=== PATIENT | male | born 1950 | race Caucasian/White ===

== ENCOUNTER 2021-07-14 09:16 | Emergency (ER) | payer MEDICARE, OTHER ==
--- OUTSIDE RECORDS SUMMARY | 2021-07-14 09:19 | XMS REPORT | Continuity of Care Document ---
:1950 Author Organization [facility] t Address [address] [place] [address] [address]. [address] [place] [address] Care Team Providers Name Role Phone Papa CACERES, Puneet Khan Attending Clinician Only, Test Attending Clinician Unavailable Pob, Lab Main Attending Clinician Unavailable Doctor Unassigned, Name Attending Clinician Unavailable Papa CACERES, A Admitting Clinician Problems This patient has no known problems. Allergies, Adverse Reactions, Alerts This patient has no known allergies or adverse reactions. Medications This patient has no known medications. Procedures This patient has no known procedures. Encounters Start End Encounter Admission Attending Care Care Encounter Source Date/Time Date/Time Type Type Clinicians Facility Department ID 2020-05-24 2020-05-24 [facility] [id number] 07:16:11 11:00:00 Encounter Puneet Alfaro [id number] [place] [id number] [facility] [id number] [place] 071 2020-05-23 2020-05-23 Laboratory Only, [place] [id number] 10:38:50 10:53:50 Only Test Angelina [id number] [place] [id number] [place] [id number] 2020-05-19 2020-05-19 Animal Tech Aaliyah [facility] [id number] 11:52:52 12:07:52 Visit Lab Main Angelina [id number] [place] [id number] [place] [id number] [address] 2020-05-19 2020-05-19 Orders Doctor THIERRY [id number] 00:00:00 00:00:00 Only Unassigned, STACI [id number] [place] [facility] [id number] Results This patient has no known results.
[2021-07-14 09:36] LABS: Absolute Lymphocytes (CBC) 1.2 K/uL (0.7-4.9); Basophils % 0.4 % (0-1.3); Hematocrit 41.5 % (39.6-49.0); Lymphocytes % 32.1 % (15.3-44.8); MPV 10.5 fL (7.6-11.3); RBC Red Blood Cell Count 4.48 M/uL (4.33-5.43)
[2021-07-14 09:50] LABS: Protime INR 1.16
[2021-07-14 09:59] LABS: BUN Blood Urea Nitrogen 15 mg/dL (7-18); Bicarbonate 27 mmol/L (21-32); Ferritin 822.9 ng/mL (26-388); Glucose Level 190 mg/dL (74-106); Potassium 3.6 mmol/L (3.5-5.1); Sodium Level 133 mmol/L (136-145); Troponin (Emerg Dept Use Only) < 0.02 ng/mL (0.0-0.045)
[2021-07-14 10:02] LABS: Blood Morphology Comment NOT SEEN (NOT SEEN); White Blood Cell Scan OK (OK)
[2021-07-14 10:04] LABS: Platelet Estimate DECR
--- NOTE | 2021-07-14 10:43 | RAD REPORT ---
EXAM DESCRIPTION: CT - Head Brain Wo Cont - 07/14/2021 10:28 am CLINICAL HISTORY: dizziness, trouble walking COMPARISON: No comparisonsNo comparisons TECHNIQUE: All CT scans are performed using dose optimization technique as appropriate and may inclu de automated exposure control or mA/KV adjustment according to patient size. FINDINGS: No intracranial hemorrhage, hydrocephalus or extra-axial fluid collection.No areas of brai n edema or evidence of midline shift. The paranasal sinuses and mastoids are clear. The calvarium is intact. IMPRESSION: No acute intracranial abnormality.
[2021-07-14] MEDS ORDERED: NA CHLORIDE 0.9% 1,000 ML ONE (10:49)
--- NOTE | 2021-07-14 10:58 | RAD REPORT ---
EXAM DESCRIPTION: RAD - Chest Single View - 07/14/2021 10:13 am CLINICAL HISTORY: COVID COMPARISON: No comparisons FINDINGS: Lines: None. Lungs: Low lung volumes with possible subtle bilateral scattered airspace opacities. Pleural: No significant pleural effusions or pneumothorax. Cardiac: The heart size is within normal limits. Bones: No acute fractures. Other: IMPRESSION: Suspect mild bilateral airspace disease that could reflect Covid-19 pneumonia.
--- NOTE | 2021-07-14 13:37 | ER ---
Nurse's Notes [facility] Name: Chelsea Gonsales Age: 71 yrs Sex: Male : 1950 Arrival Date: 07/14/2021 Time: 09:17 Bed 6 Private MD: Diagnosis: Pneumonia due to SARS-associated coronavirus;Muscle weakness (generalized);Dehydration Presentation: 07/14 09:17 Chief complaint: Patient states: weakness. informed EMS pt was altered yesterday. 5 Coronavirus screen: Vaccine status: Patient reports being unvaccinated. Client denies travel out of the [place] in the last 14 days. Coronavirus screen: Client presents with at least one sign or symptom that may indicate coronavirus-19. Standard/surgical mask placed on the client. Ebola Screen: Patient negative for fever greater than or equal to 101.5 degrees Fahrenheit, and additional compatible Ebola Virus Disease symptoms Patient denies exposure to infectious person. Patient denies travel to an Ebola-affected area in the 21 days before illness onset. Initial Sepsis Screen: Does the patient meet any 2 criteria? No. Patient's initial sepsis screen is negative. Does the patient have a suspected source of infection? No. Patient's initial sepsis screen is negative. Initial Sepsis Screen: Does the patient meet any 2 criteria? Altered Mental Status. Risk Assessment: Do you want to hurt yourself or someone else? Patient reports no desire to harm self or others. Onset of symptoms was July 06, 2021. 09:17 Method Of Arrival: EMS: [place] [id number] 09:17 Acuity: STEVE 3 ch5 Triage Assessment: 09:17 General: Appears in no apparent distress. Behavior is calm, cooperative. Pain: Denies [facility] pain. Historical: - Allergies: 10:26 No Known Allergies; hb - Immunization history:: Adult Immunizations not up to date. - Social history:: Smoking status: Patient denies any tobacco usage or history of. - Family history:: not pertinent. - Hospitalizations: : No recent hospitalization is reported. Screenin:09 Abuse screen: Denies threats or abuse. Denies injuries from another. Nutritional 5 screening: No deficits noted. Tuberculosis screening: No symptoms or risk factors identified. Fall Risk None identified. Assessment: 10:09 Reassessment: No changes from previously documented assessment. ch5 11:00 Reassessment: Patient appears in no apparent distress at this time. No changes from hb previously documented assessment. Patient and/or family updated on plan of care and expected duration. Pain level reassessed. 11:49 Reassessment: Patient appears in no apparent distress at this time. No changes from hb previously documented assessment. Patient and/or family updated on plan of care and expected duration. Pain level reassessed. Vital Signs: 09:17 BP 167 / 95; Pulse 77; Resp 18; Temp 98.6(O); Pulse Ox 96% on R/A; Weight 83.91 kg; ch5 Height 5 ft. 10 in. (177.80 cm); Pain 0/10; 11:48 BP 169 / 95; Pulse 75; Resp 17; Pulse Ox 98% ; hb 09:17 Body Mass Index 26.54 (83.91 kg, 177.80 cm) [facility] ED Course: 09:17 Patient arrived in ED. [facility] 09:17 Arm band placed on left wrist. EKG completed in triage. Results shown to MD. [facility] 09:19 Brady Williamson MD is Attending Physician. rn 09:22 Triage completed. 5 10:09 Bed in low position. Call light in reach. Side rails up X2. 5 10:09 No provider procedures requiring assistance completed. Inserted saline lock: 20 gauge [facility] in right antecubital area, using aseptic technique. 10:12 Arvin Clark, KARTHIK is Primary Nurse. [facility] 10:14 CXR XRAY In Process Unspecified. EDMS 10:28 CT Head Brain wo Cont In Process Unspecified. EDMS 10:30 COVID-19 : Document "Date of Symptom Onset" if Symptomatic. Sent. 5 10:30 COVID swab sent to lab. [facility] 10:30 BMP Sent. 5 10:30 Blood Culture Adult (2) Sent. [facility] Administered Medications: 10:26 Drug: NS 0.9% 1000 ml Route: IV; Rate: 1000 ml; Site: right antecubital; hb Outcome: 13:36 Discharge ordered by . rn 17:05 Patient left the ED. Signatures: Dispatcher [employer] EDMS Brady Williamson MD MD rn Baxter, Heather, RN RN Jaci Liang [facility] Arvin Clark RN KARTHIK [facility] Corrections: (The following items were deleted from the chart) 10:44 10:30 CORONAVIRUS drawn and sent. 5 EDOK
--- NOTE | 2021-07-14 13:37 | EDPHYS ---
Physician Documentation [facility] Name: Chelsea Gonsales Age: 71 yrs Sex: Male : 1950 Arrival Date: 07/14/2021 Time: 09:17 Bed 6 Private MD: ED Physician Brady Williamson HPI: 07/14 09:36 This 71 yrs old Male presents to ER via EMS with complaints of Generalized rn weakness and altered mental status. 09:36 The patient presents with dizziness, feeling faint, generalized weakness. Onset: The rn symptoms/episode began/occurred at an unknown time. Context: occurred at home, occurred while the patient was at rest. Modifying factors: The symptoms are alleviated by lying down, the symptoms are aggravated by standing up, changing position. Associated signs and symptoms: Pertinent negatives: abdominal pain, chest pain, focal weakness, head injury, seizure, shortness of breath, syncope, vomiting. Severity of symptoms: At their worst the symptoms were moderate in the emergency department the symptoms have improved. It is unknown whether or not the patient has had similar symptoms in the past. The patient has been recently seen by a physician:. EMS reports called 911 for generalized weakness and dizziness. Reported some confusion yesterday. Is 8 days into his Covid illness. Denies shortness of breath. Reports decreased appetite and decreased p.o. intake. Also reports not taking his Metformin or blood pressure medication regularly without a good reason. Denies any vomiting or blood in stool.. Historical: - Allergies: 10:26 No Known Allergies; hb - Immunization history:: Adult Immunizations not up to date. - Social history:: Smoking status: Patient denies any tobacco usage or history of. - Family history:: not pertinent. - Hospitalizations: : No recent hospitalization is reported. ROS: 09:36 Constitutional: Negative for fever, chills Eyes: Negative for injury, pain, redness, rn and discharge, ENT: Negative for injury, pain, and discharge, Neck: Negative for injury, pain, and swelling, Cardiovascular: Negative for chest pain, palpitations, and edema, Respiratory: Negative for shortness of breath, cough, wheezing, and pleuritic chest pain, Abdomen/GI: Negative for abdominal pain, constipation, Back: Negative for injury and pain, : Negative for injury, bleeding, discharge, and swelling, MS/Extremity: Negative for injury and deformity, Skin: Negative for injury, rash, and discoloration, Neuro: Negative for headache, numbness, tingling, and seizure. 09:36 All other systems are negative. Exam: 09:35 ECG was reviewed by the Attending Physician. rn 09:36 Constitutional: This is a well developed, well nourished patient who is awake, alert, rn no acute distress Head/Face: Normocephalic, atraumatic. Eyes: Periorbital areas with no swelling, redness, or edema. ENT: Dry mucous membranes without stridor Cardiovascular: Regular rate and rhythm. No pulse deficits. Respiratory: No increased work of breathing, no retractions or nasal flaring. Abdomen/GI: Soft, nontender Skin: Warm, dry MS/ Extremity: Pulses equal, no cyanosis. Equal circumference Neuro: Awake and alert, GCS 15, oriented to person, place, time, and situation. Motor strength 4/5 in all extremities. Sensory grossly intact. Vital Signs: 09:17 BP 167 / 95; Pulse 77; Resp 18; Temp 98.6(O); Pulse Ox 96% on R/A; Weight 83.91 kg; ch5 Height 5 ft. 10 in. (177.80 cm); Pain 0/10; 11:48 BP 169 / 95; Pulse 75; Resp 17; Pulse Ox 98% ; hb 09:17 Body Mass Index 26.54 (83.91 kg, 177.80 cm) ch5 MDM: 09:19 Patient medically screened. rn 13:34 Differential diagnosis: generalized weakness, hypovolemia, idiopathic dizziness, rn near-syncope, Covid, dehydration. Data reviewed: vital signs, nurses notes, lab test result(s), EKG, radiologic studies, CT scan, plain films, and as a result, I will discharge patient. Data interpreted: facility mechanic: rate is 75 beats/min, rhythm is normal sinus rhythm, regular, with no ectopy, Interpretation: normal rate, normal rhythm, Pulse oximetry: on room air is 98 %. Interpretation: normal. Test interpretation: by ED physician or midlevel provider: ECG, plain radiologic studies, Chest x-ray with mild bilateral interstitial infiltrates consistent with Covid pneumonia. Counseling: I had a detailed discussion with the patient and/or guardian regarding: the historical points, exam findings, and any diagnostic results supporting the discharge/admit diagnosis, lab results, radiology results, the need for outpatient follow up, to return to the emergency department if symptoms worsen or persist or if there are any questions or concerns that arise at home. Response to treatment: the patient's symptoms have mildly improved after treatment, and as a result, I will discharge patient. Special discussion: I discussed with the patient/guardian in detail that at this point there is no indication for admission to the hospital. It is understood, however, that if the symptoms persist or worsen the patient needs to return immediately for re-evaluation. ED course: Patient with generalized weakness and dehydration, secondary to Covid infection, chest x-ray shows mild pneumonia, patient without any oxygen requirement. Offered monoclonal antibody infusion given multiple medical problems such as diabetes and hypertension. Patient agrees, was consented and will give Regeneron infusion. After infusion will discharge home with return precautions.. 07/14 09:20 Order name: BMP 07/14 09:20 Order name: Blood Culture Adult (2) rn 07/14 09:20 Order name: C-Reactive Protein; Complete Time: 11: 07/14 09:20 Order name: CBC with Diff; Complete Time: 11: 07/14 09:20 Order name: Ferritin; Complete Time: 11: 07/14 09:20 Order name: Lactate; Complete Time: 11: 07/14 09:20 Order name: PT-INR; Complete Time: 11: rn 07/14 09:20 Order name: Procalcitonin; Complete Time: 11: 07/14 09:20 Order name: Ptt, Activated; Complete Time: 11: 07/14 09:20 Order name: Troponin (emerg Dept Use Only); Complete Time: 11: rn 07/14 09:21 Order name: Basic Metabolic Panel; Complete Time: 11: EDKS 07/14 09:21 Order name: Blood Culture EDKS 07/14 09:41 Order name: CBC Smear Scan; Complete Time: 11: [facility] 07/14 09:53 Order name: COVID-19 : Document "Date of Symptom Onset" if Symptomatic. eb 07/14 09:20 Order name: CXR XRAY; Complete Time: 11: 07/14 09:20 Order name: EKG; Complete Time: :21 rn 07/14 09:20 Order name: Cardiac monitoring; Complete Time: 10: rn 07/14 09:20 Order name: Droplet/Contact Precautions; Complete Time: 10: rn 07/14 09:20 Order name: EKG - Nurse/Tech; Complete Time: 10: rn 07/14 09:20 Order name: IV Start; Complete Time: 10: rn 07/14 09:20 Order name: Labs collected and sent; Complete Time: : rn 07/14 09:20 Order name: O2 Per Protocol; Complete Time: : rn 07/14 09:20 Order name: O2 Sat Monitoring; Complete Time: 10: rn 07/14 09:20 Order name: CT Head Brain wo Cont; Complete Time: 11: rn 07/14 09:20 Order name: Glucose Level; Complete Time: 10: rn 07/14 11:56 Order name: SARS-COV-2 RT PCR; Complete Time: 12:25 EDMS EC:35 Rate is 80 beats/min. Rhythm is regular. Left axis deviation noted. QRS is positive in rn lead I and negative in lead aVF. HI interval is normal. QRS interval is normal. QT interval is normal. No Q waves. T waves are Normal. No ST changes noted. Clinical impression: NSR w/ Non-specific ST/T Changes and LAD. Interpreted by me. Reviewed by me. Administered Medications: 10:26 Drug: NS 0.9% 1000 ml Route: IV; Rate: 1000 ml; Site: right antecubital; Disposition Summary: 07/14/21 13:36 Discharge Ordered Location: Home rn Problem: new rn Symptoms: have improved rn Condition: Stable rn Diagnosis - Pneumonia due to SARS-associated coronavirus rn - Muscle weakness (generalized) rn - Dehydration rn Followup: rn - With: Private Physician - When: As needed - Reason: Recheck today's complaints, Re-evaluation by your physician Discharge Instructions: - Discharge Summary Sheet rn - Dehydration, Adult rn - COVID-19 rn - 10 Things You Can Do to Manage Your COVID-19 Symptoms at Home - [facility] rn Forms: - Medication Reconciliation Form rn - Thank You Letter rn - Antibiotic rn interventional - Prescription Opioid Use rn Signatures: Dispatcher [employer] EDKS Williamson, Brady, MD MD rn Vines, Vianney, RN RN hb Eduardo, Christopher, RN RN ch5 Corrections: (The following items were deleted from the chart) 10:44 09:54 CORONAVIRUS ordered. EDMS EDMS
[2021-07-14] MEDS ORDERED: CASIRIVIMAB/IMDEVIMAB 10 ML VIAL ONE (13:49)
[2021-07-14] MEDS ORDERED: NA CHLORIDE 0.9% 250 ML ONE (13:50)
[2021-07-14] MEDS ORDERED: ACETAMINOPHEN 500 MG TAB ONE (16:33)
[2021-07-14 17:16] VITALS: TEMP 98.6
[2021-07-14 17:17] VITALS: BP 169/95; O2SAT 98
== END 2021-07-14 17:05 | disposition home or self-care (01) ==
LOC: ER 09:16
DX: U07.1 COVID-19 (principal); J12.82 Pneumonia due to coronavirus disease 2019; E86.0 Dehydration
CPT/HCPCS: 93005; 87040 ×2; 85025; 80048; 36415; 85610; 83605; 85730; 84484; 82728; 84145; 86140; 70450; 71045; 99284; U0003; J7050; J7030

== ENCOUNTER 2022-10-22 10:16 | Emergency (ER) | payer OTHER ==
--- OUTSIDE RECORDS SUMMARY | 2022-10-22 10:20 | XMS REPORT | Continuity of Care Document ---
:1950 Author Organization [facility] t Address [address] [place] [address] Dr. Michel. [address] [place] [address] Care Team Providers Name Role Phone PUNEET LANDON Attending Clinician Unavailable Puneet Landon MD Attending Clinician Only, Adc Test Attending Clinician Unavailable Pob, Adc Lab Main Attending Clinician Unavailable Doctor Unassigned, [place] Attending Clinician Unavailable PUNEET LANDON Admitting Clinician Unavailable Puneet Landon MD Admitting Clinician Payers Payer Name Policy Type Policy Number Effective Date Expiration Date S bambi MEDICARE PART A [id number] 2013 \T\ B 00:00:00 Problems This patient has no known problems. Allergies, Adverse Reactions, Alerts Allergy Allergy Status Severity Reaction(s) Onset Inactive Treating Comm ents Source Name Type Date Date Clinician Hydrocod Propensi Active Dizziness Uni vers one ty to 7-22 ity of adverse 00:00: [place] reaction [facility] HYDROCOD DRUG Active Dizziness Unive rs ONE INGREDI 7-22 ity of 00:00: [place] [facility] Hydrocod Propensi Active Dizziness 2012-11 Uni vers one-Ibup ty to 0-22 ity of rofen adverse 00:00: [place] reaction [facility] HYDROCOD DRUG Active Dizziness 2012-11 Unive rs ONE-IBUP 0-22 ity of ROFEN 00:00: [address] NO KNOWN Drug Active [facility] ALLERG Class ity of S [facility] Social History Social Habit Start Date Stop Date Quantity Comments Source Sex Assigned At Universit y of [facility] Exposure to Not sure University of SARS-CoV-2 [facility] (event) Branch Alcohol intake 2020-05-24 2020-05-24 University of 00:00:00 00:00:00 [facility] Tobacco Comment 2020-05-23 2020-05-23 quit 15 years Univer sity of 00:00:00 00:00:00 ago [facility] Smoking Status Start Date Stop Date Source Unknown if ever smoked Universit y [facility] Former smoker 2020-05-24 00:00:00 2020-05-24 00:00:00 Universi ty [facility] Medications Ordered Filled Start Stop Current Ordering Indication Dosage Frequency Signature Comments Components Source Medication Medication Date Date Medication? Clinician (SIG) Name Name metFORMIN 2020-0 Yes 500mg Take 500 Uni vers 500 mg 7-22 mg by ity of tablet 16:22: mouth 2 [place] 50 (two) Medical times Branch daily with meals. losartan 2020-0 Yes 100mg Take 100 Univ ers 100 mg 7-22 mg by ity of tablet 16:22: mouth [place] 50 daily. Medical Branch bisoproloL- 2020-0 Yes 1{tbl} Take 1 Un joe hydrochloro 7-22 tablet by ity of thiazide 16:22: mouth [place] 2.5-6.25 mg 50 daily. Medica l per tablet Branch aMILoride 5 2020-0 Yes 5mg Take 5 mg U nivers mg tablet 7-22 by mouth ity of 16:22: daily. [address] OMEGA-3-DHA 2020-0 Yes 500mg Take 500 U nivers -EPA-FISH 7-22 mg by ity of OIL ORAL 16:22: mouth. [address] lactated 2020-0 Yes 1000mL at 75 Univer s ringers IV 7-22 mL/hr, ity of infusion 15:30: 1,000 [place] 1[place]000 [place] 00 IV Medical Infusion, Branch CONTINUOUS , Starting Fri05/24/20 at 1030, Until Discontinu ed, Routine, PACU neomycin-po 2019-0 Yes PRN, Univer s lymyxin-dex 7-22 Starting ity of amethasone 15:01: Fri [place] (MAXITROL) 00 05/24/20 at Med ical 3.5 1001, Branch mg/g-10,000 Until unit/g-0.1 Discontinu % ed, ophthalmic Routine, ointment Intra-op gentamicin 2020-0 Yes PRN, Univers injection 05-24 Starting ity of 15:00: Fri [place] 00 05/24/20 at [facility] 1000, Branch Until Discontinu ed, ALLAN, Intra-op dexamethaso 2020-0 Yes PRN, Univer s ne 05-24 Starting ity of (DECADRON 14:59: Fri [place] PHOSPHATE) 05/24/20 at [facility] ical injection 0959, Branch Until Discontinu ed, Routine, Intra-op ceFAZolin 2020-0 Yes PRN, Univers (ANCEF) 05-24 Starting ity of injection 14:58: Fri [place] 00 05/24/20 at [facility] 0958, Branch Until Discontinu ed, ALLAN, Intra-op carbachoL 2020-0 Yes PRN, Univers (MIOSTAT) 05-24 Starting ity of 0.01 % 14:58: Fri [place] intraocular 00 05/24/20 at Sd dical injection 0958, [place] Until Discontinu ed, Routine, Intra-op DUOVISC 2020-0 Yes PRN, Univers (DUOVISC 05-24 Starting ity of VISCO 14:58: Fri [place] ELASTIC) 3 05/24/20 at [facility] %-4 %(0.5 0958, Branch mL) 1 % Until (0.55 mL) Discontinu intraocular ed, injection Routine, Intra-op sodium 2020-0 Yes PRN, Univers chloride 05-24 Starting ity of (NS) 14:57: Fri [place] injection 05/24/20 at [facility] 0957, Branch Until Discontinu ed, Routine, Intra-op EPINEPHrine 2020-0 Yes PRN, Univer s 1:1,000 (1 05-24 Starting ity o f mg/mL) 14:55: Fri (ADRENALIN) 05/24/20 at Sd dical injection 0955, Branch Until Discontinu ed, Routine, Intra-op balanced 2020-0 Yes PRN, Univers salt irrig 05-24 Starting ity o f soln comb1 14:55: Fri (BSS PLUS) 05/24/20 at [facility] ical ophthalmic 0955, Branch solution Until 500 mL bag Discontinu ed, Routine, Intra-op water for 2020-0 Yes PRN, Univers irrigation 05-24 Starting ity o f irrigation 14:50: Fri [place] solution 05/24/20 at Medic al 0950, [place] Until Discontinu ed, Routine, Intra-op Hyaluronida 2020-0 Yes PRN, Univer s se, Human 05-24 Starting ity of Recomb. 14:48: Fri (HYLENEX) 05/24/20 at [facility] dale injection 0948, [place] Until Discontinu ed, Routine, Intra-op eye block 2020-0 Yes PRN, Univers syringe 11 05-24 Starting ity o f mL 14:48: Fri05/24/20 at Medical 0948, [place] Until Discontinu ed, Intra-op lactated 2020-0 2020- No 1000mL at 20 Unive rs ringers IV 05-24 mL/hr, ity of infusion 12:30: 12:43 1,000 mL, [place] as 1,000 mL 00 :00 IV Medical Infusion, [place] ONCE, 1 dose, Fri05/24/20 at 0730, Routine, DSU Pre-op mydriatic 2020-0 2020- No .5mL 0.5 mL, Univ ers #5 05-24 Left Eye, ity of ophthalmic 12:30: 12:43 ONCE, 1 [place] solution 00 :00 dose, Fri Medica l 0.5 mL 05/24/20 at [place] syringe 0730, Routine, DSU Pre-op bisoproloL- 2020-0 Yes 1{tbl} Take 1 Un joe hydrochloro 7-21 tablet by ity of thiazide 13:45: mouth [place] 2.5-6.25 mg 55 daily. Medica l per tablet [place] aMILoride 5 2020-0 Yes 5mg Take 5 mg U nivers mg tablet 7-21 by mouth ity of 13:45: daily. [address] OMEGA-3-DHA 2020-0 Yes 500mg Take 500 U nivers -EPA-FISH 7-21 mg by ity of OIL ORAL 13:45: mouth. [address] metFORMIN 2020-0 Yes 500mg Take 500 Uni vers 500 mg 7-21 mg by ity of tablet 13:39: mouth 2 [place] 33 (two) Medical times [place] daily with meals. losartan 2020-0 Yes 100mg Take 100 Univ ers 100 mg 7-21 mg by ity of tablet 13:39: mouth [place] 33 daily. [facility] Branch amoxicillin 2012-11 Yes Univjosefina s (TRIMOX) 0-16 ity of 500 mg 00:00: [place] capsule 00 Medical Branch amoxicillin 2013-1 Yes Univer s (TRIMOX) 0-16 ity of 500 mg 00:00: [place] capsule 00 Medical Branch Vital Signs Vital Name Observation Time Observation Value Comments Source Systolic blood 2020-05-24 15:30:00 133 mm[Hg] Univer sity of pressure [facility] Branch Diastolic blood 2020-05-24 15:30:00 72 mm[Hg] Unive rsity of pressure [facility] Branch Respiratory rate 2020-05-24 15:30:00 16 /min Univ ersity of [place] Medical Branch Oxygen saturation in 2020-05-24 15:30:00 95 /min University of Arterial blood by [place] [employer] dale Pulse oximetry Branch Heart rate 2020-05-24 15:15:00 59 /min Universi ty of [facility] Body temperature 2020-05-24 15:15:00 36.89 Ilana Univ ersity of [facility] Body height 2020-05-23 16:24:00 182.9 cm Universi ty of [place] [facility] Body weight 2020-05-23 16:24:00 89.4 kg Universi ty of [place] [facility] BMI 2020-05-23 16:24:00 26.72 kg/m2 Universi ty of [place] [facility] Systolic blood 2020-05-24 15:30:00 133 mm[Hg] Univer sity of pressure [facility] Branch Diastolic blood 2020-05-24 15:30:00 72 mm[Hg] Unive rsity of pressure [facility] Branch Respiratory rate 2020-05-24 15:30:00 16 /min Univ ersity of [place] [facility] Branch Oxygen saturation in 2020-05-24 15:30:00 95 /min University of Arterial blood by [facility] Pulse oximetry Branch Heart rate 2020-05-24 15:15:00 59 /min Universi ty [facility] [place] [facility] Body temperature 2020-05-24 15:15:00 36.89 Ilana Univ ersity of [place] [facility] Body height 2020-05-23 16:24:00 182.9 cm Universi ty [facility] [place] [facility] Body weight 2020-05-23 16:24:00 89.4 kg Universi ty [facility] [place] [facility] BMI 2020-05-23 16:24:00 26.72 kg/m2 Universi ty [facility] [place] [facility] Procedures Procedure Date / Time Performed Performing Clinician Sourc e POCT GLUCOSE(AGE 2020-05-24 12:27:00 Ruben Ramesh [facility] >30DAYS) Medical Branch COVID-19 (ID NOW RAPID 2020-05-23 15:53:00 [facility] Branch NOTICE OF PRIVACY 2020-05-23 15:40:17 Doctor Unassigned, No Univ [facility] PRACTICES Name Medical Branch CONSENT/REFUSAL FOR 2020-05-23 15:39:55 Doctor Unassigned, No Un iversity [facility] DIAGNOSIS AND Name Medical Branch TREATMENT ASSIGNMENT OF BENEFITS 2020-05-23 15:39:40 Doctor Unassigned, No [facility] Name Medical Branch ASSIGNMENT OF BENEFITS 2020-05-19 16:50:48 Doctor Unassigned, No [facility] Encounters Start End Encounter Admission Attending Care Care Encounter Source Date/Time Date/Time Type Type Clinicians Facility Department ID 2021-08-31 [facility] [id number] Univers 07:54:40 P[place]EET [place] [facility] 2020-05-24 2020-05-24 [facility] [id number] 07:16:11 11:00:00 Encounter Puneet Alfaro [id number] [facility] [id number] Surgical [id number] [place] [address] 2020-05-24 2020-05-24 [facility] [id number] [facility] 07:16:11 11:00:00 Encounter Puneet Alfaro [id number] ity of [facility] [id number] [facility] Surgical [id number] [address] 2020-05-23 2020-05-23 Laboratory Only, [facility] [id number] 10:38:50 10:53:50 Only Test [place] [id number] [facility] [id number] [place] [id number] [facility] 2020-05-23 2020-05-23 Laboratory Only, [facility] Test [facility] [id number] Univers 10:38:50 10:53:50 Only Puneet Landon [id number] 0 [facility] [id number] [place] [id number] [address] 2020-05-23 2020-05-23 [facility] [id number] Univers 10:30:00 10:30:00 [place]ET [place] [facility] 2020-05-19 2020-05-19 Applications Programmer Jennifer Fischer Lab Main [facility] [id number] Univers 11:52:52 12:07:52 Visit Puneet Landon [id number] 0 [facility] 4.2.7.2.686 [place] Professio [id number] Sd dical [address] 2020-05-19 2020-05-19 Applications Programmer Aaliyah [facility] [id number] 11:52:52 12:07:52 Visit Lab Main [place] [id number] [facility] [id number] Professio [id number] [address] 2020-05-19 2020-05-19 Outpatient [facility] [id number] Univers 11:45:00 11:45:00 PUNEET [facility] 2020-05-19 2020-05-19 Orders Doctor THIERRY [id number] [facility] 00:00:00 00:00:00 Only Unassigned, STACI [id number] ity of [place] [facility] 4.2.7.2.686 [place] [id number] [address] 2020-05-19 2020-05-19 Orders Doctor GUADARRAMA [id number] 00:00:00 00:00:00 Only Unassigned, STAC[place] [id number] [place] [facility] 4.2.7.2.686 [id number] Results Test Description Test Time Test Comments Results Result Comments Source POCT Glucose 2020-05-24 12:27:00 Test Item Value Reference Range Interpretation Comme nts POCT Glu (age>30days) (test code = 3342) 172 mg/dL 70-110 A Lab Interpretation (test code = 43931-7) Abnormal [facility] [place] [facility]ID NOW RAPID TESTING)2020-05-23 16:54:00 Test Item Value Reference Range Interpretation Comments SARS-CoV-2 Rapid ID NOW Not Detected Not Detected (test code = 45884-2) LOIS (test code = LOIS) ID NOW COVID-19 Assay is an isothermal nucleic acid amplification test intended for the qualitative detection of nucleic acid from SARS-CoV-2 viral RNA in nasopharyngeal (EGG TESTER) specimens. It is used under Emergency Use Authorization (EUA) by FDA. The limit of detection (LOD) of the assay is 125 Genome Equivalents/mL. A positive result is indicative of the presence of SARS-CoV-2 RNA. ?Clinical correlation with patient history and other diagnostic information is necessary to determine patient infection status. A negative (Not Detected) result does not preclude SARS-CoV-2 infection. In patients with clinical symptoms and other tests that are consistent with SARS-CoV-2 infection, negative results should be treated as presumptive negative and a new specimen should be tested with alternative PCR molecular test. Invalid: Please collect a new specimen for repeat patient testing if clinically indicated.ID NOW COVID-19 Assay is an isothermal nucleic acid amplification test intended for the qualitative detection of nucleic acid from SARS-CoV-2 viral RNA in nasopharyngeal (EGG TESTER) specimens. It is used under Emergency Use Authorization (EUA) by FDA. The limit of detection (LOD) of the assay is 125 Genome Equivalents/mL. A positive result is indicative of the presence of SARS-CoV-2 RNA. ?Clinical correlation with patient history and other diagnostic information is necessary to determine patient infection status. A negative (Not Detected) result does not preclude SARS-CoV-2 infection. In patients with clinical symptoms and other tests that are consistent with SARS-CoV-2 infection, negative results should be treated as presumptive negative and a new specimen should be tested with alternative PCR molecular test. Invalid: Please collect a new specimen for repeat patient testing if clinically indicated. Lab Interpretation Normal (test code = 82351-9) [facility] [place] [facility]
--- NOTE | 2022-10-22 10:55 | RAD REPORT ---
EXAM DESCRIPTION: CT - Head Brain Wo Cont - 10/22/2022 10:46 am CLINICAL HISTORY: Numbness COMPARISON: 2020 TECHNIQUE: Computed axial tomography of the head was obtained. IV contrast was not requested. All CT scans are performed using dose optimization technique as appropriate and may include automated exposure control or mA/KV adjustment according to patient size. FINDINGS: An intracranial bleed is not seen . The ventricles are normal in caliber. No extra-axial fluid collection is noted. No significant hypodensity within the brain noted. Mild cerebral atrophy Fluid within the sinuses/ mastoids is not seen. IMPRESSION: No acute intracranial abnormality is seen. If patient's symptoms persist MRI of the bra in would be recommended.
[2022-10-22 11:05] LABS: MCV 91.7 fL (80-100); MPV 9.8 fL (7.6-11.3)
[2022-10-22 11:07] LABS: Protime INR 1.06
[2022-10-22] MEDS ORDERED: HYDRALAZINE HCL 20 MG/ML VIAL ONE (11:09)
[2022-10-22 11:24] LABS: Albumin 3.2 g/dL (3.4-5.0); Bilirubin Direct 0.2 mg/dL (0-0.2); Bilirubin Total 1.7 mg/dL (0.2-1.0); Magnesium 1.8 mg/dL (1.6-2.4); Potassium 4.2 mmol/L (3.5-5.1); Protein, Total 7.8 g/dL (6.4-8.2)
--- NOTE | 2022-10-22 11:36 | RAD REPORT ---
EXAM DESCRIPTION: Amanuel Single View10/22/2022 11:29 am CLINICAL HISTORY: Malaise /numbness COMPARISON: 2020 FINDINGS: The lungs appear clear of acute infiltrate. The heart is normal size Mild chronic elevation right hemidiaphragm IMPRESSION: No acute abnormalities displayed
[2022-10-22] MEDS ORDERED: INSULIN -REGULAR HUMAN 50 UNIT/0.5 ML ML ONE (11:37)
[2022-10-22] MEDS ORDERED: NA CHLORIDE 0.9% 500 ML ONE (11:37)
--- NOTE | 2022-10-22 12:29 | EDPHYS ---
Physician Documentation [facility] Name: Chelsea Gonsales Age: 72 yrs Sex: Male : 1950 Arrival Date: 10/22/2022 Time: 10:19 Bed 14 Private MD: ED Physician Mekhi Singh HPI: 10/22 10:25 This 72 yrs old Male presents to ER via Wheelchair with complaints of Numbness to L jh7 brady and L pinky. 10:25 Onset: The symptoms/episode began/occurred 2 day(s) ago. Associated signs and symptoms: jh7 Pertinent negatives: abdominal pain, chest pain, cough, fever, headache, shortness of breath, vomiting. Historical: - Allergies: 10:25 No Known Allergies; bp - Home Meds: 12:01 metformin 1,000 mg Oral tab 1 tab 2 times per day [Active]; losartan 100 mg oral tab 1 bp tab once daily [Active]; amlodipine 10 mg tab 1 tab once daily [Active]; Coreg 6.25 mg Oral tab 1 tab 2 times per day [Active]; pioglitazone 45 mg oral tab 1 tab once daily [Active]; - PMHx: 10:25 Coronary atherosclerosis; Diabetes mellitus; Hypertensive disorder; bp - Immunization history:: Adult Immunizations up to date. - Social history:: Smoking status: Patient denies any tobacco usage or history of. Exam: 10:15 Constitutional: This is a well developed, well nourished patient who is awake, alert, jh7 and in no acute distress. Head/Face: Normocephalic, atraumatic. 10:15 Eyes: Pupils equal round and reactive to light, extra-ocular motions intact. Lids and jh7 lashes normal. Conjunctiva and sclera are non-icteric and not injected. Cornea within normal limits. Periorbital areas with no swelling, redness, or edema. ENT: Nares patent. No nasal discharge, no septal abnormalities noted. Tympanic membranes are normal and external auditory canals are clear. Oropharynx with no redness, swelling, or masses, exudates, or evidence of obstruction, uvula midline. Mucous membranes moist. Neck: Trachea midline, no thyromegaly or masses palpated, and no cervical lymphadenopathy. Supple, full range of motion without nuchal rigidity, or vertebral point tenderness. No Meningismus. Cardiovascular: Regular rate and rhythm with a normal S1 and S2. No gallops, murmurs, or rubs. Normal PMI, no JVD. No pulse deficits. Respiratory: Lungs have equal breath sounds bilaterally, clear to auscultation and percussion. No rales, rhonchi or wheezes noted. No increased work of breathing, no retractions or nasal flaring. Abdomen/GI: Soft, non-tender, with normal bowel sounds. No distension or tympany. No guarding or rebound. No evidence of tenderness throughout. Back: No spinal tenderness. No costovertebral tenderness. Full range of motion. Skin: Warm, dry with normal turgor. Normal color with no rashes, no lesions, and no evidence of cellulitis. MS/ Extremity: Pulses equal, no cyanosis. Neurovascular intact. Full, normal range of motion. Neuro: Awake and alert, GCS 15, oriented to person, place, time, and situation. Cranial nerves II-XII grossly intact. Motor strength 5/5 in all extremities. Sensory grossly intact. Cerebellar exam normal. Normal gait. 10:15 Neuro: Orientation: to person, place, time \T\ situation. Mentation: is normal, Memory: is normal, immediate memory is intact, Cranial nerves: grossly normal, Cerebellar function: is grossly normal, Motor: is normal, Sensation: numbness, that is mild, of the left little finger, Left brady, Gait: is steady, at a normal pace. Vital Signs: 10:24 BP 204 / 127; Pulse 100; Resp 16; Temp 98; Pulse Ox 94% ; bp 11:15 BP 209 / 121; Pulse 98; Resp 16; Pulse Ox 97% ; bp 11:55 BP 145 / 96; Pulse 99; Resp 16; Pulse Ox 97% ; bp NIH Stroke Scale Scores: 10:15 NIHSS Score: 0 [facility] 10:27 NIHSS Score: 0 bp MDM: 10:23 Patient medically screened. [facility] 12:30 Differential diagnosis: Acute CVA, TIA, hypoglycemia, hypertensive urgency. Data [facility] reviewed: vital signs, nurses notes, lab test result(s), EKG, radiologic studies, CT scan, plain films. 12:30 Data interpreted: Pulse oximetry: is 97 %. Interpretation: normal. Counseling: I had a [facility] detailed discussion with the patient and/or guardian regarding: the historical points, exam findings, and any diagnostic results supporting the discharge/admit diagnosis, to return to the emergency department if symptoms worsen or persist or if there are any questions or concerns that arise at home. Response to treatment: the patient's symptoms have resolved after treatment, Numbness resolved. Special discussion: Agreed to refill the patient's amlodipine and metformin. Strongly encouraged the patient to be compliant with his medication and discussed high risk for stroke with hypertension. He agreed to follow-up with his PCP, and return to the ER if symptoms return. He remained hemodynamically stable throughout the ER visit.. 10/22 10:31 Order name: Basic Metabolic Panel; Complete Time: 11: [facility] 10/22 10:31 Order name: CBC with Diff; Complete Time: : [facility] 10/22 10:31 Order name: LFT's; Complete Time: 11: [facility] 10/22 10:31 Order name: Magnesium; Complete Time: 11: [facility] 10/22 10:31 Order name: NT PRO-BNP; Complete Time: 11: [facility] 10/22 10:31 Order name: PT-INR; Complete Time: 11: [facility] 10/22 10:31 Order name: Troponin HS; Complete Time: 11:28 [facility] 10/22 10:31 Order name: XRAY Chest (1 view); Complete Time: 11:43 [facility] 10/22 10:31 Order name: CT Head Brain wo Cont; Complete Time: 10:59 [facility] 10/22 10:36 Order name: Glucose, Ancillary Testing; Complete Time: 10:47 [facility] 10/22 12:38 Order name: Glucose, Ancillary Testing; Complete Time: 12:58 [facility] 10/22 12:40 Order name: Glucose, Ancillary Testing [facility] 10/22 10:31 Order name: EKG; Complete Time: 10:32 [facility] 10/22 10:31 Order name: Cardiac monitoring; Complete Time: 10:43 [facility] 10/22 10:31 Order name: EKG - Nurse/Tech; Complete Time: 12:52 [facility] 10/22 10:31 Order name: IV Saline Lock; Complete Time: 10:43 [facility] 10/22 10:31 Order name: Labs collected and sent; Complete Time: 10:43 [facility] 10/22 10:31 Order name: O2 Per Protocol; Complete Time: 10:43 [facility] 10/22 10:31 Order name: O2 Sat Monitoring; Complete Time: 10:43 [facility] 10/22 11:43 Order name: Recheck B/P; Complete Time: 11:57 [facility] 10/22 12:19 Order name: Recheck Blood Sugar; Complete Time: 12:52 [facility] EC:39 Rate is 89 beats/min. Rhythm is regular. Left axis deviation noted. OR interval is [facility] normal at 140 msec. QRS interval is normal at 96 msec. QT interval is normal at 386 msec. No Q waves. T waves are Normal. No ST changes noted. Clinical impression: Normal ECG. Administered Medications: 11:15 Drug: hydrALAZINE 10 mg Route: IVP; Site: right forearm; bp 12:52 Follow up: Response: No adverse reaction bp 11:45 Drug: Insulin Regular Human 5 units {Co-Signature: koEmily (Laura Heard RN).} Route: IVP; bp Site: right forearm; 12:53 Follow up: Response: No adverse reaction bp 11:50 Drug: Sodium Chloride 0.9% 500 ml Route: IVPB; Site: right forearm; bp 12:52 Follow up: IV Status: Completed infusion; IV Intake: 500ml bp Point of Care Testing: Blood Glucose: 10:25 Blood Glucose: 311 mg/dL; bp Ranges: Critical Glucose Levels:Adult <50 mg/dl or >400 mg/dl <40 mg/dl or >180 mg/dl Disposition: 12:51 Co-signature as Attending Physician, Mekhi MANRIQUE was immediately available onsite ms3 in the emergency department for consultation in the care of the patient. Disposition Summary: 10/22/22 12:28 Discharge Ordered Location: Home [facility] Problem: new [facility] Symptoms: are resolved [facility] Condition: Stable [facility] Diagnosis - Hyperglycemia, unspecified 7 - Primary pulmonary hypertension [facility] Followup: [facility] - With: Private Physician - When: 2 - 3 days - Reason: Recheck today's complaints Discharge Instructions: - Discharge Summary Sheet [facility] - Hyperglycemia [facility] - Pulmonary Hypertension [facility] - Blood Glucose Monitoring, Adult [facility] Forms: - Medication Reconciliation Form [facility] - Thank You Letter [facility] Prescriptions: - amlodipine 10 mg Oral tablet - take 1 tablet by ORAL route once daily; 30 tablet; Refills: 0, Product [facility] Selection Permitted - Metformin 1,000 mg Oral Tablet - take 1 tablet by ORAL route every 12 hours with morning and evening meals; 30 jh7 tablet; Refills: 0, Product Selection Permitted NIH Stroke Scale - NIH Stroke Score Date: 10/22/2022 Time: 10:15 Total Score = 0 1a. Level of Consciousness (LOC) - 0(Alert) 1b. Level of Consciousness (LOC) (Month \T\ Age) - 0(Both) 1c. LOC Commands (Open \T\ Closes Eyes/[employer] Maker) - 0(Both) 2. Best Gaze (Lateral Gaze Paresis) - 0(Normal) 3. Visual Field Loss - 0(No visual loss) 4. Facial Palsy - 0(Normal) 5a. Left Arm: Motor (10-second hold) - 0(No drift) 5b. Right Arm: Motor (10-second hold) - 0(No drift) 6a. Left Leg: Motor (5-second hold - always test supine) - 0(No drift) 6b. Right Leg: Motor (5-second hold - always test supine) - 0(No drift) 7. Limb Ataxia (finger/nose \T\ heel/brady - test with eyes open) - 0(Absent) 8. Sensory Loss (pinprick arms/legs/face) - 0(Normal) 9. Best Language: Aphasia (description/naming/reading) - 0(No aphasia) 10. Dysarthria (speech clarity - read or repeat words) - 0(Normal) 11. Extinction and Inattention (visual/tactile/auditory/spatial/personal) - 0(No abnormality) Initials: [facility] NIH Stroke Scale - NIH Stroke Score Date: 10/22/2022 Time: 10:27 Total Score = 0 1a. Level of Consciousness (LOC) - 0(Alert) 1b. Level of Consciousness (LOC) (Month \T\ Age) - 0(Both) 1c. LOC Commands (Open \T\ Closes Eyes/[place] Maker) - 0(Both) 2. Best Gaze (Lateral Gaze Paresis) - 0(Normal) 3. Visual Field Loss - 0(No visual loss) 4. Facial Palsy - 0(Normal) 5a. Left Arm: Motor (10-second hold) - 0(No drift) 5b. Right Arm: Motor (10-second hold) - 0(No drift) 6a. Left Leg: Motor (5-second hold - always test supine) - 0(No drift) 6b. Right Leg: Motor (5-second hold - always test supine) - 0(No drift) 7. Limb Ataxia (finger/nose \T\ heel/brady - test with eyes open) - 0(Absent) 8. Sensory Loss (pinprick arms/legs/face) - 0(Normal) 9. Best Language: Aphasia (description/naming/reading) - 0(No aphasia) 10. Dysarthria (speech clarity - read or repeat words) - 0(Normal) 11. Extinction and Inattention (visual/tactile/auditory/spatial/personal) - 0(No abnormality) Initials: bp Signatures: Dispatcher [employer] Ruben Magana, RN RN bp Mekhi Singh DO DO ms3 Tiarra Stover, FURNITURE POLISHER FURNITURE POLISHER jh7 Laura Heard RN ko1 Corrections: (The following items were deleted from the chart) 12:01 10:25 Home Meds: None; bp bp
--- NOTE | 2022-10-22 12:29 | ER ---
Nurse's Notes [facility] Name: Chelsea Gonsales Age: 72 yrs Sex: Male : 1950 Arrival Date: 10/22/2022 Time: 10:19 Bed 14 Private MD: Diagnosis: Hyperglycemia, unspecified;Primary pulmonary hypertension Presentation: 10/22 10:24 Chief complaint: Patient states: LEFT FIFTH FINGER AND LEFT INSTEP NUMBNESS FOR >1 DAY. bp Coronavirus screen: At this time, the client does not indicate any symptoms associated with coronavirus-19. Ebola Screen: No symptoms or risks identified at this time. No acute neurological deficit is noted. The patients blood glucose was checked prior to arriving to the hospital and was found to be hyperglycemic. The patient has been moved to a treatment room. Initial Sepsis Screen: Does the patient meet any 2 criteria? No. Patient's initial sepsis screen is negative. Does the patient have a suspected source of infection? No. Patient's initial sepsis screen is negative. Risk Assessment: Do you want to hurt yourself or someone else? Patient reports no desire to harm self or others. Onset of symptoms is unknown. 10:24 Method Of Arrival: Wheelchair bp 10:24 Acuity: STEVE 3 bp Triage Assessment: 10:25 The onset of the patients symptoms was October 21, 2022 at 09:00. General: Appears in bp no apparent distress. General: Behavior is calm, appropriate for age. Pain: Denies pain. EENT: No deficits noted. Neuro: Reports numbness in left little finger and arch of left foot. Cardiovascular: Rhythm is sinus rhythm. Respiratory: No deficits noted. GI: No signs and/or symptoms were reported involving the gastrointestinal system. : No signs and/or symptoms were reported regarding the genitourinary system. Derm: No deficits noted. Musculoskeletal: No deficits noted. Historical: - Allergies: 10:25 No Known Allergies; bp - Home Meds: 12:01 metformin 1,000 mg Oral tab 1 tab 2 times per day [Active]; losartan 100 mg oral tab 1 bp tab once daily [Active]; amlodipine 10 mg tab 1 tab once daily [Active]; Coreg 6.25 mg Oral tab 1 tab 2 times per day [Active]; pioglitazone 45 mg oral tab 1 tab once daily [Active]; - PMHx: 10:25 Coronary atherosclerosis; Diabetes mellitus; Hypertensive disorder; bp - Immunization history:: Adult Immunizations up to date. - Social history:: Smoking status: Patient denies any tobacco usage or history of. Screenin:27 [facility] ED Fall Risk Assessment (Adult) History of falling in the last 3 months, bp including since admission No falls in past 3 months (0 pts). Humpty Dumpty Scale Fall Assessment Tool (age< 18yrs) Age 13 years and above (1 pt). Abuse screen: Denies threats or abuse. Denies injuries from another. Nutritional screening: No deficits noted. Tuberculosis screening: No symptoms or risk factors identified. Fall Risk Fall in past 12 months (25 points). Assessment: 10:27 VAN Scoring: Arm Drift: Patients demonstrates NO arm weakness. Patient is VAN Negative. bp The patient has not been NPO before screening. The patient is alert, and able to follow commands. The patient does not exhibit slurred or garbled speech. The patient is not exhibiting difficulty speaking. The patient does not exhibit difficulty understanding words. The patient is able to swallow own secretions with no drooling or need for suction. Patient tolerated one teaspoon of water. No drooling, immediate coughing, gurgling, or clearing of the throat was noted. The patient tolerated 90mL of water. No drooling, immediate coughing, gurgling, or clearing of the throat was noted. The patient passed the bedside swallow screening. Oral medications may be given as ordered. Contact Physician for further diet orders. Provider notified of bedside swallow screening results: Tiarra TORRES. TNKase (Tenecteplase) Screening: Contraindications: Rapidly improving condition or minor deficit: No. 11:15 Reassessment: PT RETURNED FROM CT. REMAINS HYPERTENSIVE. bp Vital Signs: 10:24 BP 204 / 127; Pulse 100; Resp 16; Temp 98; Pulse Ox 94% ; bp 11:15 BP 209 / 121; Pulse 98; Resp 16; Pulse Ox 97% ; bp 11:55 BP 145 / 96; Pulse 99; Resp 16; Pulse Ox 97% ; bp NIH Stroke Scale Scores: 10:15 NIHSS Score: 0 jh7 10:27 NIHSS Score: 0 bp ED Course: 10:19 Patient arrived in ED. as 10:20 Ruben Fragoso, RN is Primary Nurse. bp 10:23 [facility]over [facility] jh7 10:23 Mekhi Singh DO is Attending Physician. jh7 10:25 Triage completed. bp 10:25 Arm band placed on. bp 10:27 Patient has correct armband on for positive identification. Bed in low position. Call bp light in reach. Side rails up X2. 10:45 Inserted saline lock: 22 gauge in right forearm, using aseptic technique. Blood bp collected. 10:48 CT Head Brain wo Cont In Process Unspecified. EDMS 11:30 XRAY Chest (1 view) In Process Unspecified. EDMS 12:52 Glucose, Ancillary Testing Sent. bp Administered Medications: 11:15 Drug: hydrALAZINE 10 mg Route: IVP; Site: right forearm; bp 12:52 Follow up: Response: No adverse reaction bp 11:45 Drug: Insulin Regular Human 5 units {Co-Signature: ko1 (Laura Heard RN).} Route: IVP; bp Site: right forearm; 12:53 Follow up: Response: No adverse reaction bp 11:50 Drug: Sodium Chloride 0.9% 500 ml Route: IVPB; Site: right forearm; bp 12:52 Follow up: IV Status: Completed infusion; IV Intake: 500ml bp Medication: 10:27 VIS not applicable for this client. bp Point of Care Testing: Blood Glucose: 10:25 Blood Glucose: 311 mg/dL; bp Ranges: Intake: 12:52 IV: 500ml; Total: 500ml. bp Outcome: 12:28 Discharge ordered by [facility] 12:53 Patient left the ED. bp NIH Stroke Scale - NIH Stroke Score Date: 10/22/2022 Time: 10:15 Total Score = 0 1a. Level of Consciousness (LOC) - 0(Alert) 1b. Level of Consciousness (LOC) (Month \T\ Age) - 0(Both) 1c. LOC Commands (Open \T\ Closes Eyes/Foreign Exchange Clerk) - 0(Both) 2. Best Gaze (Lateral Gaze Paresis) - 0(Normal) 3. Visual Field Loss - 0(No visual loss) 4. Facial Palsy - 0(Normal) 5a. Left Arm: Motor (10-second hold) - 0(No drift) 5b. Right Arm: Motor (10-second hold) - 0(No drift) 6a. Left Leg: Motor (5-second hold - always test supine) - 0(No drift) 6b. Right Leg: Motor (5-second hold - always test supine) - 0(No drift) 7. Limb Ataxia (finger/nose \T\ heel/brady - test with eyes open) - 0(Absent) 8. Sensory Loss (pinprick arms/legs/face) - 0(Normal) 9. Best Language: Aphasia (description/naming/reading) - 0(No aphasia) 10. Dysarthria (speech clarity - read or repeat words) - 0(Normal) 11. Extinction and Inattention (visual/tactile/auditory/spatial/personal) - 0(No abnormality) Initials: [facility] NIH Stroke Scale - NIH Stroke Score Date: 10/22/2022 Time: :27 Total Score = 0 1a. Level of Consciousness (LOC) - 0(Alert) 1b. Level of Consciousness (LOC) (Month \T\ Age) - 0(Both) 1c. LOC Commands (Open \T\ Closes Eyes/Foreign Exchange Clerk) - 0(Both) 2. Best Gaze (Lateral Gaze Paresis) - 0(Normal) 3. Visual Field Loss - 0(No visual loss) 4. Facial Palsy - 0(Normal) 5a. Left Arm: Motor (10-second hold) - 0(No drift) 5b. Right Arm: Motor (10-second hold) - 0(No drift) 6a. Left Leg: Motor (5-second hold - always test supine) - 0(No drift) 6b. Right Leg: Motor (5-second hold - always test supine) - 0(No drift) 7. Limb Ataxia (finger/nose \T\ heel/brady - test with eyes open) - 0(Absent) 8. Sensory Loss (pinprick arms/legs/face) - 0(Normal) 9. Best Language: Aphasia (description/naming/reading) - 0(No aphasia) 10. Dysarthria (speech clarity - read or repeat words) - 0(Normal) 11. Extinction and Inattention (visual/tactile/auditory/spatial/personal) - 0(No abnormality) Initials: Signatures: Dispatcher [employer] Ivonne Richardson Brian, RN RN bp Tiarra Stover, FOREPART REDUCER FOREPART REDUCER [facility] Laura Heard RN ko1 Corrections: (The following items were deleted from the chart) 12:01 10:25 Home Meds: None; bp bp
[2022-10-22 13:06] VITALS: TEMP 98
[2022-10-22 13:07] VITALS: O2SAT 97
[2022-10-22 13:08] VITALS: BP 145/96
--- NOTE | 2022-10-23 14:01 | EKG ---
Test Date: 2022-10-22 Test Time: 12:39:35 [employer] Manager: BP MEASUREMENT RESULTS: Intervals: Rate: 89 NE: 140 QRSD: 96 QT: 386 QTc: 469 [place]: P: 50 NE: 140 QRS: -31 T: 40 INTERPRETIVE STATEMENTS: Normal sinus rhythm Left axis deviation Septal infarct, age undetermined Abnormal ECG Compared to ECG 07/14/2021 09:17:45 No significant changes Electronically Signed On 10-23-22 13:59:40 TIP PRINTER by Alberto Bailey
== END 2022-10-22 12:53 | disposition home or self-care (01) ==
LOC: ER 10:16
DX: E11.65 Type 2 diabetes mellitus with hyperglycemia (principal); I27.0 Primary pulmonary hypertension
CPT/HCPCS: 85025; 80048; 36415; 83735; 85610; 82947 ×2; 80076; 84484; 83880; 70450; 71045; J0360; J1815; J7040; 93005; 96365; 96375; 99284

== ENCOUNTER 2024-06-07 08:19 | Day surgery (SDC) | payer OTHER ==
[2024-06-04 15:30] LABS: Absolute Eosinophils 0.6 K/uL (0-0.5); Absolute Lymphocytes (CBC) 2.4 K/uL (0.7-4.9); Absolute Monocytes 0.9 K/uL (0.1-1.3); Absolute Neutrophil 6.2 K/uL (1.8-8.0); Basophils % 0.4 % (0-1.3); Eosinophils % 6.1 % (0-4.4); Hematocrit 42.8 % (39.6-49.0); Lymphocytes % 23.8 % (15.3-44.8); MCH 30.3 pg (27.0-35.0); MCHC 32.7 g/dL (32.0-36.0); MCV 92.8 fL (80-100); MPV 9.2 fL (7.6-11.3); Monocytes % 8.6 % (3.3-12.3); Neutrophils % 61.1 % (41.7-73.7); Nucleated Red Blood Cells % 0.1 % (0-0); Platelets 201 thou/uL (152-406); RBC Red Blood Cell Count 4.61 M/uL (4.33-5.43); Red Cell Distribution Width 13.3 % (12.1-15.2)
[2024-06-04 15:49] LABS: Anion Gap 10.2 mEq/L (5.0-15.0); Potassium 4.2 mEq/L (3.5-5.1)
--- NOTE | 2024-06-04 21:46 | RAD REPORT ---
EXAM DESCRIPTION: RAD - Chest Pa And Lat (2 Views) - 06/04/2024 3:27 pm CLINICAL HISTORY: Pre op pending mass removal from neck. Hypertension COMPARISON: Chest Single View dated 10/22/2022; Chest Single View dated 07/14/2021 TECHNIQUE: PA and lateral views of the chest were obtained. FINDINGS: The lungs are clear. Heart size is normal and central vasculature is within normal limits. No pleural effusion or pneumothorax seen. No acute bony finding noted. IMPRESSION: No acute cardiopulmonary process.
[2024-06-07] MEDS: Ringers Lactate 1,000 ML IV ONE (08:19)
[2024-06-07] MEDS ORDERED: ONDANSETRON 4 MG/2 ML VIAL ONE (09:11)
[2024-06-07] MEDS ORDERED: propofoL 200 MG/20 ML VIAL IV ONE (09:11)
[2024-06-07] MEDS ORDERED: LIDOCAINE 2% MPF 5 ML VIAL ONE (09:11)
[2024-06-07] MEDS ORDERED: MIDAZOLAM HCL 2 MG/2 ML INJ ONE (09:12)
[2024-06-07] MEDS ORDERED: FENTANYL CITR 100 MCG/2 ML ONE (09:12)
[2024-06-07] MEDS: CEFAZOLIN SODIUM 1 GM/VIAL ONE (09:43)
[2024-06-07] MEDS ORDERED: EPHEDRINE SULF 50 MG/ML VIAL ONE (09:47)
--- NOTE | 2024-06-07 10:56 | P.BOP ---
Preoperative diagnosis: tender deep left posterior neck subQ mass Postoperative diagnosis: same Primary procedure: Escisional biopsy of tender deep left posterior neck subQ mass 7x6cm Estimated blood loss: <10cc Specimen: mass Findings: mass attached to muscle fascia Anesthesia: General Complications: None Condition: Good
[2024-06-07] MEDS: CODEINE 30MG/APAP 300MG TAB ONE (12:22)
[2024-06-07 13:55] VITALS: TEMP 97
[2024-06-07 13:58] VITALS: BP 134/88; O2SAT 95
--- NOTE | 2024-06-07 17:07 | EKG ---
Test Date: 2024-06-04 Test Time: 15:18:05 School Cleaner: JEFFERSON MEASUREMENT RESULTS: Intervals: Rate: 78 WV: 156 QRSD: 96 QT: 374 QTc: 426 [place]: P: 61 WV: 156 QRS: -27 T: 60 INTERPRETIVE STATEMENTS: Normal sinus rhythm Possible Lateral infarct, age undetermined Abnormal ECG Compared to ECG 10/22/2022 12:39:35 Left-axis deviation no longer present Myocardial infarct finding still present Electronically Signed On 06-07-24 16:59:28 CDT by Alberto Bailey
--- NOTE | 2024-06-07 22:49 | OP ---
Surgeon: Rich Liang MD Preoperative Diagnosis: Deep tender left posterior neck subcutaneous mass. Postoperative Diagnosis: Deep tender left posterior neck subcutaneous mass. Procedure: Excisional biopsy of tender deep left posterior neck mass, 7 x 6 cm. Estimated Blood Loss: Less than 10 cc. Specimen: Mass. Findings: Mass attached to the fascia and the muscle conjugate to specimen. Anesthesia: General plus local. Complications: None. Indication: This is a case of a male who comes to us with a tender mass in the left upper neck givin g him pain and discomfort. He wants that excised. The benefits, alternatives, and risks of excision were fully explained, which include, but not limited to, infection, bleeding, damage to adjacent str uctures, anesthesia complication, recurrence, SD, even . He also understands this may not relie ve the symptoms. He might need more than one surgical intervention. He understood and signed a cons ent. Procedure In Detail: The area of concern was marked by me and the patient in the holding room. The patient was brought to the operating room, placed in supine position. Anesthesia was done without co mplication. The left upper neck was prepped and draped in sterile fashion. Local anesthesia was keshia lied, followed by sharp incision of the skin. We noticed the patient to have a subcutaneous mass gianna t was attached to the muscle itself, so the fascia and the muscle have to come with the specimen. Th is did not penetrate the muscle itself. The mass was completely excised in 1 unit. Area was irrigat ed and then we proceeded to close in layers to diminish the chance of seroma, so deep layers with 3-0 chromic, mid layers with 3-0 chromic, and the skin with sutures. Local anesthesia was applied befor e closure. Sponge count and instrument count were correct. Hemostasis was obtained. The patient wa s sent to recovery in stable condition. BIANCA/CHRIS Voice ID: [id number] Report ID: [id number]
--- NOTE | 2024-06-07 22:52 | DS ---
Date of Discharge: 06/07/2024 Diagnosis: Deep tender left posterior neck subcutaneous mass. Procedure: Excisional biopsy of deep tender left posterior neck subcutaneous mass 7 x 6 cm. Disposition: Home. Activity: As tolerated. No heavy lifting. Followup: Follow up in my office in 1 week. Call for appointment at [phone]. Keep area dry until he sees us again in the office. NATHALIE Voice ID: [id number] Report ID: [id number]
== END 2024-06-07 12:45 | disposition home or self-care (01) ==
LOC: OR 08:19
PROVIDERS: ATTEND Surgery
PROC: 0JB50ZZ Excision of Left Neck Subcutaneous Tissue and Fascia, Open Approach (ICD-10-PCS; principal; 2024-06-07 09:50)
DX: D17.0 Benign lipomatous neoplasm of skin and subcutaneous tissue of head, face and neck (principal); E11.9 Type 2 diabetes mellitus without complications; I10 Essential (primary) hypertension; Z85.828 Personal history of other malignant neoplasm of skin; H35.30 Unspecified macular degeneration
CPT/HCPCS: 93005; 85025; 80048; 36415; 82947 ×2; 88305; 71046; 11426; 12042; J2704; J2001; J2250; J3010; J2405; J7120; J0690; 88304